=== PATIENT | female | born 1965 | race Caucasian/White ===

== ENCOUNTER 2023-04-20 15:26 | Emergency (ER) | payer BC, SELFPAY ==
[2023-04-20 15:36] VITALS: BP 142/83; PULSE 105; RESP 20; TEMP 36.4; O2SAT 96; BMI 38.6
--- NOTE | 2023-04-20 16:08 | CRLHL7_ITS ---
For Patients: As a result of the Cures Act, medical imaging exams and procedure reports are released immediately into your electronic medical record. You may view this report before your referring provider. If you have questions, please contact your health care provider. Indication: Fell yesterday. Technique: AP view of the pelvis Comparison: None. Findings: Bones: Alignment is normal. No fractures or bone lesions. Joint spaces: Mild bilateral degenerative changes in the hips and SI joints.. Soft tissues: Unremarkable. Impression: No acute fractures or dislocations identified. 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 Dictated by Serina Cuello MD @ 04/20/2023 4:48:08 PM (Electronically Signed)
--- NOTE | 2023-04-20 16:09 | ED_ITS ---
HPI - General Adult General Chief complaint: Extremity Pain/Injury, Lower Stated complaint: fell yesterday Time Seen by Provider: 04/20/23 15:45 History of Present Illness HPI narrative: This 57-year-old female comes in with an injury to her left lower back and buttock region. She states that she was adjusting her trailer stopped alongside the road and stepped backwards off of the trailer. She fell a couple feet and landed on her left buttock region. She states that she did bump her head but did not have loss of consciousness. This happened yesterday. She comes in today stating that she has episodes of pain in her left SI joint region and sometimes this radiates laterally and a bit down her leg. She is ambulatory. She states that the pain is recurrent now with rotational motions such as trying to open a door and pulling at with some rotation of her pelvis. Related Data Home Medications Medication Instructions Recorded Confirmed albuterol sulfate 90 mcg/actuation 1 inh inhalation PRN 04/20/23 04/20/23 aerosol inhaler (Ventolin HFA) Previous Rx's Medication Instructions Recorded cyclobenzaprine 10 mg tablet 10 mg PO TID #15 tabs 04/20/23 ketorolac 10 mg tablet 10 mg PO Q8H 5 days #15 tabs 04/20/23 methylprednisolone 4 mg tablets in See Rx Instructions PO .COMPLEX 04/20/23 a dose pack (Medrol (Clemente)) #21 ea Allergies Allergy/AdvReac Type Severity Reaction Status Date / Time Latex, Natural Rubber AdvReac Intermediate Rash Verified 04/20/23 15:36 narcotic Allergy Intermediate Uncoded 04/20/23 15:36 Review of Systems Status of ROS: Reports: 10 or more systems reviewed and unremarkable except as noted in History and below Narrative: Constitutional: No fevers, no weight gain or loss. Eyes: No discharge. No vision changes. HENT: No congestion, no sore throat, no ear pain. Cardiovascular: No chest pain, no palpitations. Respiratory: No shortness of breath, no wheezes, no cough. Gastrointestinal: No abdominal pain, no vomiting, no diarrhea. Genitourinary: No dysuria, no hematuria. Musculoskeletal: Normal range of motion. Pain in the left lower back and left buttock region. Skin: No rashes, no pruritis. Neurological: No dizziness, weakness, sensory change, speech change. Endo/Heme/Allergies: No bruising or bleeding. No polydipsia. Pysch: no suicidality, no anxiety, no insomnia. All other systems reviewed and are negative. Exam Narrative: Exam Narrative: Constitutional: Well-developed, well-nourished, no acute distress. HEENT: Normocephalic, atraumatic. Neck: Normal range of motion. Nontender. Supple. Heart: Regular. No murmurs. Normal rate. Intact distal pulses. Lungs: Clear to auscultation. No chest discomfort. No wheezes, rhonchi, or rales. Abdomen: Normal bowel sounds. Nontender. No rebound tenderness. Genitalia: Deferred. Back: No midline tenderness. Pain located below the belt left of midline in the left buttock region. No sign of bruising or deformity. The patient is ambulatory without much of a limp. Extremities: Normal range of motion. No injury. Skin: Intact. No rash. Warm. No erythema or pallor. Neurologic: No altered sensation. No weakness. Alert and oriented. Psychiatric: No suicidality. No anxiety or depression. No insomnia. Nursing notes and vitals signs are reviewed. Const: Vital Signs, click to edit/add: Vital Signs - 24 hr 04/20/23 15:36 Temperature 97.6 F Pulse Rate [Pulse Oximeter] 105 H Respiratory Rate 20 Blood Pressure [Le ft Upper Arm] 142/83 H Pulse Oximetry 96 Oxygen Delivery Me thod Room Air Course Vital Signs Vital signs: Initial Vital Signs Temperature 97.6 F 04/20/23 15:36 Temperature Source Temporal Artery Scan 04/20/23 15:36 Pulse Rate 105 H 04/20/23 15:36 Pulse Rhythm Regular 04/20/23 15:36 Respiratory Rate 20 04/20/23 15:36 Blood Pressure 142/83 H 04/20/23 15:36 Blood Pressure Mean 102 04/20/23 15:36 Pulse Oximetry 96 04/20/23 15:36 Oxygen Delivery Method Room Air 04/20/23 15:36 Vital Signs Temperature 97.6 F 04/20/23 15:36 Pulse Rate 105 H 04/20/23 15:36 Respiratory Rate 20 04/20/23 15:36 Blood Pressure 142/83 H 04/20/23 15:36 Pulse Oximetry 96 08/09/23 15:36 Oxygen Delivery Method Room Air 04/20/23 15:36 Temperature 97.6 F 04/20/23 15:36 Pulse Rate 105 H 04/20/23 15:36 Respiratory Rate 20 04/20/23 15:36 Blood Pressure 142/83 H 04/20/23 15:36 Pulse Oximetry 96 04/20/23 15:36 Oxygen Delivery Method Room Air 04/20/23 15:36 Medical Decision Making MDM Narrative Medical decision making narrative: This patient comes in reporting injuries from a fall that occurred yesterday. She is ambulatory without much of a limp but does come in requesting an x-ray of her pelvis. This was completed and shows no sign of acute findings by my review. Radiology report is pending. Patient is okay to be discharged home to increase activity as tolerated. I did provide prescriptions for Toradol, Flexeril, and Medrol Dosepak. Discharge Plan Discharge Clinical Impression: Contusion of hip, left Patient Disposition: Home, Self-Care Condition: Stable Additional Instructions: Increase activity as tolerated. Take medication as needed and directed. Follow up with MD return if worsening. Prescriptions: New cyclobenzaprine 10 mg tablet 10 mg PO TID Qty: 15 0RF ketorolac 10 mg tablet 10 mg PO Q8H 5 Days Qty: 15 0RF methylprednisolone [Medrol (Clemente)] 4 mg tablets,dose pack See Rx Instructions .ROUTE .COMPLEX Qty: 21 0RF Rx Instructions: orally per package directions No Action albuterol sulfate [Ventolin HFA] 90 mcg/actuation HFA aerosol inhaler 1 inh inhalation PRN Follow Up/Referrals: MELIZA FERGUSON DO [Primary Care Provider] - [facility]
--- NOTE | 2023-04-20 16:37 | ED.GENADULT ---
HPI - General Adult General Chief complaint: Extremity Pain/Injury, Lower Stated complaint: fell yesterday Time Seen by Provider: 04/20/23 15:45 Related Data Home Medications Medication Instructions Recorded Confirmed albuterol sulfate 90 mcg/actuation 1 inh inhalation PRN 04/20/23 04/20/23 aerosol inhaler (Ventolin HFA) Previous Rx's Medication Instructions Recorded cyclobenzaprine 10 mg tablet 10 mg PO TID #15 tabs 04/20/23 ketorolac 10 mg tablet 10 mg PO Q8H 5 days #15 tabs 04/20/23 methylprednisolone 4 mg tablets in See Rx Instructions PO .COMPLEX 04/20/23 a dose pack (Medrol (Clemente)) #21 ea Allergies Allergy/AdvReac Type Severity Reaction Status Date / Time Latex, Natural Rubber AdvReac Intermediate Rash Verified 04/20/23 15:36 narcotic Allergy Intermediate Uncoded 04/20/23 15:36 PFSH PFSH Social History Smoking Status: Never smoker Non-prescribed substance use: denies use Exam Const: Vital Signs, click to edit/add: Vital Signs - 24 hr 04/20/23 15:36 Temperature 97.6 F Pulse Rate [Pulse Oximeter] 105 H Respiratory Rate 20 Blood Pressure [Le ft Upper Arm] 142/83 H Pulse Oximetry 96 Oxygen Delivery Me thod Room Air Course Vital Signs Vital signs: Initial Vital Signs Temperature 97.6 F 04/20/23 15:36 Temperature Source Temporal Artery Scan 04/20/23 15:36 Pulse Rate 105 H 04/20/23 15:36 Pulse Rhythm Regular 04/20/23 15:36 Respiratory Rate 20 04/20/23 15:36 Blood Pressure 142/83 H 04/20/23 15:36 Blood Pressure Mean 102 04/20/23 15:36 Pulse Oximetry 96 04/20/23 15:36 Oxygen Delivery Method Room Air 04/20/23 15:36 Vital Signs Temperature 97.6 F 04/20/23 15:36 Pulse Rate 105 H 04/20/23 15:36 Respiratory Rate 20 04/20/23 15:36 Blood Pressure 142/83 H 04/20/23 15:36 Pulse Oximetry 96 04/20/23 15:36 Oxygen Delivery Method Room Air 04/20/23 15:36 Temperature 97.6 F 04/20/23 15:36 Pulse Rate 105 H 04/20/23 15:36 Respiratory Rate 20 04/20/23 15:36 Blood Pressure 142/83 H 04/20/23 15:36 Pulse Oximetry 96 04/20/23 15:36 Oxygen Delivery Method Room Air 04/20/23 15:36 Discharge Plan Discharge Clinical Impression: Contusion of hip, left Patient Disposition: Home, Self-Care Condition: Stable Additional Instructions: Increase activity as tolerated. Take medication as needed and directed. Follow up with MD return if worsening. Prescriptions: New cyclobenzaprine 10 mg tablet 10 mg PO TID Qty: 15 0RF ketorolac 10 mg tablet 10 mg PO Q8H 5 Days Qty: 15 0RF methylprednisolone [Medrol (Clemente)] 4 mg tablets,dose pack See Rx Instructions .ROUTE .COMPLEX Qty: 21 0RF Rx Instructions: orally per package directions No Action albuterol sulfate [Ventolin HFA] 90 mcg/actuation HFA aerosol inhaler 1 inh inhalation PRN Follow Up/Referrals: MELIZA FERGUSON DO [Primary Care Provider] - Stand [facility]one [facility]
== END 2023-04-20 16:50 | disposition home or self-care (01) ==
PROVIDERS: Emergency Provider Emergency Medicine Emergency Medical Services; PCP Student in an Organized Health Care Education/Training Program
DX: S70.02XA Contusion of left hip, initial encounter (principal); W17.89XA Other fall from one level to another, initial encounter
CPT/HCPCS: 72170; 99283; 99284

== ENCOUNTER 2023-07-12 10:39 | Outpatient (CLI) | payer MEDICAID, SELFPAY | END 2023-07-12 10:40 | disposition home or self-care (01) | LOC: INJ CL 10:40 | PROVIDERS: PCP Student in an Organized Health Care Education/Training Program; Visit Provider Family Medicine | DX: M17.12 Unilateral primary osteoarthritis, left knee (principal); M25.562 Pain in left knee | CPT/HCPCS: 64454 ==

== ENCOUNTER 2023-07-18 12:01 | Outpatient (CLI) | payer MEDICAID, SELFPAY ==
--- NOTE | 2023-07-18 13:27 | W.ANESCHARGE ---
Anesthesia Charges Start Date/Time Anesthesia Start Date: 07/18/23 Anesthesia Start Time: 13:05 Stop Date/Time Anesthesia Stop Date: 07/18/23 Anesthesia Stop Time: 13:25
== END 2023-07-18 12:02 | disposition home or self-care (01) ==
LOC: OP CLINIC 12:02
PROVIDERS: PCP Student in an Organized Health Care Education/Training Program; Visit Provider Internal Medicine Gastroenterology
DX: Z12.11 Encounter for screening for malignant neoplasm of colon (principal); K57.30 Diverticulosis of large intestine without perforation or abscess without bleeding
CPT/HCPCS: 45378; 812

== ENCOUNTER 2023-08-09 13:12 | Outpatient (CLI) | payer MEDICAID, SELFPAY ==
--- NOTE | 2023-08-09 12:28 | W.ANESCHARGE ---
Anesthesia Charges Start Date/Time Anesthesia Start Date: 08/09/23 Anesthesia Start Time: 14:01 Stop Date/Time Anesthesia Stop Date: 08/09/23 Anesthesia Stop Time: 14:37
--- NOTE | 2023-08-09 14:51 | W.ANESCHARGE ---
Anesthesia Charges Start Date/Time Anesthesia Start Date: 08/09/23 Anesthesia Start Time: 14:01 Stop Date/Time Anesthesia Stop Date: 08/09/23 Anesthesia Stop Time: 14:37
== END 2023-08-09 13:13 | disposition home or self-care (01) ==
LOC: INJ CL 13:12
PROVIDERS: PCP Student in an Organized Health Care Education/Training Program; Visit Provider Family Medicine
DX: M17.12 Unilateral primary osteoarthritis, left knee (principal); M25.562 Pain in left knee; G89.29 Other chronic pain
CPT/HCPCS: 01991; 64624; J1885; J2405; J2704

== ENCOUNTER 2023-09-20 07:29 | Outpatient (CLI) | payer MEDICAID, SELFPAY ==
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
== END 2023-09-20 07:30 | disposition home or self-care (01) ==
PROVIDERS: PCP Student in an Organized Health Care Education/Training Program; Visit Provider Family Medicine
DX: M54.16 Radiculopathy, lumbar region (principal); M51.36 Other intervertebral disc degeneration, lumbar region
CPT/HCPCS: 62323; J0702; Q9966

== ENCOUNTER 2023-09-27 08:34 | Outpatient (CLI) | payer MEDICAID, SELFPAY ==
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
== END 2023-09-27 08:35 | disposition home or self-care (01) ==
LOC: INJ CL 08:36
PROVIDERS: PCP Student in an Organized Health Care Education/Training Program; Visit Provider Family Medicine
DX: M17.31 Unilateral post-traumatic osteoarthritis, right knee (principal); M25.561 Pain in right knee
CPT/HCPCS: 64454

== ENCOUNTER 2023-10-18 12:01 | Outpatient (CLI) | payer MEDICAID, SELFPAY ==
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
--- NOTE | 2023-10-18 13:54 | W.ANESCHARGE ---
Anesthesia Charges Start Date/Time Anesthesia Start Date: 10/18/23 Anesthesia Start Time: 13:11 Stop Date/Time Anesthesia Stop Date: 10/18/23 Anesthesia Stop Time: 13:48
== END 2023-10-18 12:02 | disposition home or self-care (01) ==
LOC: INJ CL 12:03
PROVIDERS: PCP Student in an Organized Health Care Education/Training Program; Visit Provider Family Medicine
DX: M17.11 Unilateral primary osteoarthritis, right knee (principal); M25.561 Pain in right knee; G89.29 Other chronic pain
CPT/HCPCS: 01991; 64624; J1630; J1885; J2405; J2704

== ENCOUNTER 2024-09-21 13:35 | Emergency (ER) | payer MEDICAID, SELFPAY ==
--- OUTSIDE RECORDS SUMMARY | 2024-09-21 13:38 | XMS_ITS | Clinical Summary ---
Author Organization [facility] Address [place], [place] [address] Care Team Providers Care Gore Stitcher Name Role Phone Meliza Ryan DO Primary Care Provider [phone] Allergies Active Allergy Reactions Criticality Noted Date Comments Codeine Nausea And Vomiting 06/14/2023 Meperidine Anaphylaxis High 02/17/2023 Hydromorphone Anaphylaxis High 02/17/2023 Fentanyl *Unknown 07/03/2024 Hydrocodone GI Upset 08/30/2024 Meloxicam Other - Describe In Comment Field 07/14/2023 Palpitations Methylprednisolone Paresthesias 04/25/2023 Morphine Anaphylaxis High 02/17/2023 Phentermine Anaphylaxis High 05/28/2024 Medications acetaminophen (TYLENOL EXTRA STRGTH) 500 mg tablet Take 1 Tablet (500 mg) by mouth every 6 hours. Max acetaminophen dose: 4000mg in 24 hrs. 0 02/18/20 23 Active albuterol HFA (PRO-AIR; VENTOLIN; PROVENTIL) 90 mcg/actuation inhalerIndication s:SOB (shortness of breath) Inhale 1-2 Puffs by mouth every 4 hours if needed for Shortness Of Breath. 1 Each 2 04/11/20 23 Active omeprazole (PRILOSEC) 20 mg Delayed-Release capsuleIndication s:Chronic GERD Take 1 Capsule (20 mg) by mouth once daily before a meal. 90 Capsule 3 10/11/19 24 Active levalbuterol (Xopenex HFA) 45 mcg/actuation inhalerIndication s:Mild intermittent intrinsic asthma without status asthmaticus without complication Inhale 1-2 Puffs by mouth every 4 hours if needed for Shortness Of Breath. 15 g 04/23/20 24 Active cyclobenzaprine (FLEXERIL) 10 mg tabletIndications :Bulging of cervical intervertebral disc Take 1 Tablet (10 mg) by mouth 2 times daily if needed for Muscle Spasm. 60 Tablet 3 05/02/20 24 Active tirzepatide, weight loss, (Zepbound) 10 mg/0.5 mL penIndications:Ob esity (BMI 35.0-39.9 without comorbidity) Inject 10 mg subcutaneous once weekly. 6 mL 3 08/30/20 24 Active ibuprofen (IBU) 600 mg tabletIndications :Chronic arthralgias of knees and hips Take 1 Tablet (600 mg) by mouth three times daily with meals. Maximum of 3200 mg in 24 hours. 180 Tablet 5 08/30/20 24 Active tirzepatide, weight loss, (Zepbound) 7.5 mg/0.5 mL penIndications:Ob esity (BMI 35.0-39.9 without comorbidity) Inject 7.5 mg subcutaneous once weekly. 6 mL 05/31/20 24 024 Discontin ued(*Med complete/ Regimen complete/ Level of care change) IBU 600 mg tabletIndications :Chronic arthralgias of knees and hips Take 1 Tablet (600 mg) by mouth three times daily with meals. Maximum of 3200 mg in 24 hours. 180 Tablet 06/19/20 24 024 Discontin ued(Reord er (E-cancel not sent)) amoxicillin-clavu lanate (AUGMENTIN) 875-125 mg tabletIndications :Sinusitis, unspecified chronicity, unspecified location Take 1 Tablet by mouth two times daily with meals for 5 days. 10 Tablet 08/30/20 24 024 nitrofurantoin macrocrystals/mon ohydrate (Macrobid) 100 mg capsuleIndication s:Urinary tract infection without hematuria, site unspecified Take 1 Capsule (100 mg) by mouth two times daily for 5 days. 10 Capsule 08/30/20 24 024 fluconazole (DIFLUCAN) 150 mg tabletIndications :Urinary tract infection without hematuria, site unspecified Take 1 Tablet (150 mg) by mouth one time for 1 dose. 1 Tablet 12/19/20 24 024 Active Problems Problem Noted Date Diagnosed Date Obesity (BMI 35.0-39.9 without comorbidity) 02/11 History of total hysterectomy 04/11/2023 Overview (04/11/2023): 1 ovary left Cataracts, bilateral 02/17/2023 Encounters Date Type Department Care Team Description 09/18/2024 Telephone [facility] [address] [place] [address] Estephania Enamorado MD Procedure 09/04/2024 [facility] [address] [facility] [address] [place] [address] Debra Torres MD Screening (Injection Prescreening-Lumbar RFA) 08/30/2024 7:40 AM STUD MASTER/MISTRESS Office Visit [facility] [address] [place] [address] Meliza Ryan DO Medication Management (Renew Zepbound, maybe increase ) 08/30/2024 Telephone [facility] [address] [place] [address] [address] [place] [address] Nehemias Lainez DO Pain (Pain diary post Lumbar MBB #2.) 08/30/2024 Travel 08/24/2024 Orders Only [address] [place] [id number] Nehemias Lainez DO <No scans attached> 07/31/2024 8:00 AM STUD MASTER/MISTRESS Ancillary Procedure [facility] [address] [place] [address] 07/31/2024 Telephone [facility] [address] [facility] [address] [place] [address] Nehemias Lainez DO Pain (Pain post MBB#1) 07/31/2024 Travel 07/30/[address] [place] [address] Shine Mack MD Results (ekg ) 07/26/2024 [facility] [address] [facility] [address] [place] [address] Nehemias Lainez DO Screening (Injection prescreening) 07/25/2024 11:30 AM STUD MASTER/MISTRESS Office [facility] [address] [facility] [address] [place] [address] Shine Mack MD Consult (REFERRED BY DR. MELIZA RYAN - HOLTER 04/09 - NO OUTSIDE CARDS - DX: Paroxysmal SVT (supraventricular tachycardia) (HC) [I47.10]/LABS 06/11 /) 07/25/2024 Travel 07/23/2024 Telephone [facility] [address] [facility] [address] [place] [address] Nehemias Lainez DO Pain (Pain diary post MBB.) 07/20/2024 Orders Only [facility] [address] [facility] [address] [place] [id number] Nehemias Lainez DO <No scans attached> 07/20/2024 Travel 07/03/2024 3:00 PM CDT Office Visit [facility] [address] [facility] [address] [place] [address] Estephania Enamorado MD Consult (Initial office visit. 06/25 imaging. Pt reports left leg pain. ) 07/03/2024 Travel 06/29/2024 Travel 06/25/2024 11:00 AM CDT Orders Only [facility] [address] [place] [address] 2 scans: (2-Ord) US VENOUS INSUFFICIENCY LOWER EXTREMITY BILATERAL ([id number]) 06/25/2024 Travel from Last 3 Months Immunizations Name Administration Dates Next Due Tdap 04/11/2023 Family History Medical History Relation Name Comments Cancer-breast No Family History Social History Tobacco Use Types Packs/Day Years Used Date Smoking Tobacco: Never Passive Smoke Exposure: Never Smokeless Tobacco: Never Tobacco Cessation:Counseling Given: Yes Alcohol Use Standard Drinks/Week Comments Yes 0 (1 standard drink = 0.6 oz pur e alcohol) [facility] Utilities Answer Date Recorded Do you have trouble paying f or utilities (for example, heat, electricity, water, phone)? Yes 03/09/2024 PHQ-2 Answer Date Recorded PHQ-2 TOTAL SCORE 0 04/11/2023 Social Connections Answer Date Recorded Do you often feel lonely or isolated from those around you? 0 03/09/2024 Financial Resource Strain Answer Date R ecorded Difficulty of Paying Living Expenses 3 03/09/2024 Difficulty of Paying Living Expenses Not on file 03/09/2024 Food Insecurity Answer Date Recorded Do you worry your food will run out before you are able to buy more? 1 03/09/2024 Transportation Needs Answer Date Record ed Does lack of transportation keep you from medica l appointments? 1 03/09/2024 Does lack of transportation keep you from work, meetings or getting things that you need? 1 03/09/2024 Housing Stability Answer Date Recorded What is your housing situation today? 1 03/09/2024 Comments No Sex and Gender Information Value Date Recorded Sex Assigned at Not on file Legal Sex Female 2:18 PM CDT Gender Identity Not on file Sexual Orientation Not on file Obstetrics History Last Filed Vital Signs Vital Sign Reading Time Taken Comments Blood Pressure 113/75 08/30/2024 7:50 AM STUD MASTER/MISTRESS Pulse 91 08/30/2024 7:50 AM STUD MASTER/MISTRESS Temperature 36.7 C (98.1 F) 06/04/2024 10:15 AM CDT Respiratory Rate 16 08/25/2023 2:36 PM STUD MASTER/MISTRESS Oxygen Saturation 98% 08/30/2024 7:50 AM STUD MASTER/MISTRESS Inhaled Oxygen Concentration - - Weight 88.8 kg (195 lb 12.8 oz) 08/30/2024 7:50 AM STUD MASTER/MISTRESS Height 165.1 cm (5' 5) 07/25/2024 11:4 5 AM STUD MASTER/MISTRESS Body Mass Index 32.58 07/25/2024 11:45 AM STUD MASTER/MISTRESS Plan of Treatment Upcoming Encounters Date Type Department Care Team (Late st Contact Info) Description 09/24/2024 7:15 AM STUD MASTER/MISTRESS Office Visit [facility] [address] [place] [address] Meliza Ryan DO [address] [place] [address] 09/27/2024 7:30 AM STUD MASTER/MISTRESS Appointment [facility] [address] [place] [address] 10/25/2024 2:20 PM STUD MASTER/MISTRESS Office Visit [facility] [address] [place] [address] Roman Pulliam MD [address] [place] [address] Health Maintenance Due Date Last Done Comments HIV for age 15-65 12/19/1982 Hepatitis C screening for ag e 18-79 12/19/1985 Pneumococcal series for age 50+ (1 of 2 - PCV) 12/19/1986 Zoster (shingles) series for age 50+ (1 of 2) 12/19/2017 Depression screening for age 12+ 04/13/2024 04/13/2023, 04/11/2023, 04/11/2023, Additional history exists COVID-19 vaccine series ( - season) 2024 05/30/2021 Influenza for age 50-64 05/13/2024 Mammogram for age 45-75 04/16/2025 04/16/2024, 04/11 BMI (ht and wt on same day) for age 18+ 07/25/2025 07/25/2024, 07/03/2024, 06/11/2024, Additional history exists Lipids for age 45-75 06/11/2029 06/11/2024, 02/18/20 23 Tetanus booster 04/11/2033 04/11/2023 Colonoscopy through age 75 07/18/2033 07/18/2023, Tdap Completed 04/11/2023 Procedures Procedure Name Priority Date/Time Associated Diagnosis Comments URINALYSIS MACROSCOPIC - [facility] ONLY POC DIP ([facility]) Routine 08/30/2024 8:42 AM STUD MASTER/MISTRESS Urinary tract infection without hematuria, site unspecified VITAMIN B12 Routine 08/30/2024 8:41 AM STUD MASTER/MISTRESS Low vitamin B12 level IRON PLUS IRON BINDING CAP Routine 08/30/2024 8:41 AM STUD MASTER/MISTRESS Iron deficiency anemia, unspecified iron deficiency anemia type CBC WITH AUTO DIFFERENTIAL Routine 08/30/2024 8:41 AM STUD MASTER/MISTRESS Low vitamin B12 level Iron deficiency anemia, unspecified iron deficiency anemia type CREATININE Routine 08/30/2024 8:41 AM STUD MASTER/MISTRESS Chronic arthralgias of knees and hips URINALYSIS MICROSCOPIC Routine 08/30/2024 8:38 AM STUD MASTER/MISTRESS Urinary tract infection without hematuria, site unspecified ECHO TTE COMPLETE WO CONTRAST Routine 07/31/2024 8:44 AM STUD MASTER/MISTRESS Heart palpitations EKG 12 LEAD Routine 07/25/2024 12:54 PM STUD MASTER/MISTRESS Screening for cardiovascular condition US VENOUS INSUFFICIENCY LOWER EXTREMITY BILATERAL Routine 06/25/2024 12:36 PM CDT Varicose veins of both lower extremities with pain LIPID PANEL W REFLEX MEASURED LDL Routine 06/11/2024 8:32 AM CDT Lipid screening XR MAMMO [place] BILAT SCREEN Routine 04/16/2024 7:12 AM CDT Visit for screening mammogram COLONOSCOPY SCREENING Routine 07/18/2023 12:00 AM STUD MASTER/MISTRESS Encounter for screening colonoscopy Diverticulosis of large intestine without hemorrhage from Last 3 Months or Most Recently Relevant to Health Maintenance Results * (ABNORMAL) POCT Urinalysis Dipstick Only (08/30/2024 8:42 AM STUD MASTER/MISTRESS) PH 5.5 5.0 - 8.0 [facility] SPECIFIC GRAVITY 1.015 1.001 - 1.035 [facility] GLUCOSE NEGATIVE NEGATIVE [facility] BILIRUBIN NEGATIVE NEGATIVE [facility] KETONES NEGATIVE NEGATIVE [facility] OCCULT BLOOD NEGATIVE NEGATIVE [facility] PROTEIN NEGATIVE NEGATIVE [facility] NITRITE NEGATIVE NEGATIVE [facility] LEUKOCYTE ESTERASE TRACE(A) NEGATIVE [facility] Urine URINE SPECIMEN / Unknown 08/30/2024 8:42 AM STUD MASTER/MISTRESS 08/30/2024 8:42 AM STUD MASTER/MISTRESS [facility] URINE Final Result [facility] [address] [place] [address], [place] [phone] [facility] [address] [place] [address] * IRON PLUS IRON BINDING CAP (08/30/2024 8:41 AM STUD MASTER/MISTRESS) IRON, TOTAL 60 45 - 160 mcg/dL [facility] IRON BINDING CAPACITY 371 250 - 450 mcg/dL (calc) [facility] % SATURATION 16 16 - 45 % (calc) [facility] Blood BLOOD SPECIMEN / Unknown 08/30/2024 8:41 AM STUD MASTER/MISTRESS 08/30/2024 8:41 AM STUD MASTER/MISTRESS us Flakitai Darioqra DO CHEMISTRY Final Result [facility] [address] [place] [address], [place] [phone] [facility] [address] [place] [address] * CREATININE (08/30/2024 8:41 AM STUD MASTER/MISTRESS) CREATININE 0.75 0.50 - 1.03 mg/dL [facility] EGFR 93 > OR = 60 mL/min/1.73 m2 [facility] Blood BLOOD SPECIMEN / Unknown 08/30/2024 8:41 AM STUD MASTER/MISTRESS 08/30/2024 8:41 AM STUD MASTER/MISTRESS Meliza Dariosergio HUANG CHEMISTRY Final Result [facility] [address] [place] [address], [facility] [address] [place] [address] * (ABNORMAL) CBC AND DIFFERENTIAL (08/30/2024 8:41 AM STUD MASTER/MISTRESS) WHITE BLOOD CELL COUNT 6.9 3.8 - 10.8 Thousand/u L [facility] RED BLOOD CELL COUNT 5.34(H) 3.80 - 5.10 Million/uL [facility] HEMOGLOBIN 15.3 11.7 - 15.5 g/dL [facility] HEMATOCRIT 48.2(H) 35.0 - 45.0 % [facility] MCV 90.3 80.0 - 100.0 fL [facility] MCH 28.7 27.0 - 33.0 pg [facility] MCHC 31.7(L) 32.0 - 36.0 g/dL [facility] Comment: For adults, a slight decrease in the calculated MCHC value (in the range of 30 to 32 g/dL) is most likely not clinically significant; however, it should be interpreted with caution in correlation with other red cell parameters and the patient's clinical condition. RDW 14.4 11.0 - 15.0 % [facility] PLATELET COUNT 323 140 - 400 Thousand/u L [facility] MPV 10.3 7.5 - 12.5 fL [facility] ABSOLUTE NEUTROPHILS 4,568 1,500 - 7,800 cells/uL [facility] ABSOLUTE LYMPHOCYTES 1,773 850 - 3,900 cells/uL [facility] ABSOLUTE MONOCYTES 352 200 - 950 cells/uL [facility] ABSOLUTE EOSINOPHILS 179 15 - 500 cells/uL [facility] ABSOLUTE BASOPHILS 28 0 - 200 cells/uL [facility] NEUTROPHILS 66.2 % [facility] LYMPHOCYTES 25.7 % [facility] MONOCYTES 5.1 % [facility] EOSINOPHILS 2.6 % [facility] BASOPHILS 0.4 % [facility] Blood BLOOD SPECIMEN / Unknown 08/30/2024 8:41 AM STUD MASTER/MISTRESS 08/30/2024 8:41 AM STUD MASTER/MISTRESS [facility] HEMATOLOGY Final Result [facility] [address] [place] [address], [place] [phone] [facility] [address] [place] [address] * VITAMIN B12 (08/30/2024 8:41 AM STUD MASTER/MISTRESS) Pathologist [facility] VITAMIN B12 465 200 - 1,100 pg/mL [facility] Blood BLOOD SPECIMEN / Unknown 08/30/2024 8:41 AM STUD MASTER/MISTRESS 08/30/2024 8:41 AM STUD MASTER/MISTRESS Meliza Ryan DO CHEMISTRY Final Result [facility] [address] [place] [address], [place] [phone] [facility] [address] [place] [address] * URINALYSIS MICROSCOPIC (08/30/2024 8:38 AM STUD MASTER/MISTRESS) Pathologist [facility] RBC 0-2 0-2, None Seen /HPF 08/30/2024 3:58 PM STUD MASTER/MISTRESS [facility] WBC 3-5 0-2, 3-5, None Seen /HPF 08/30/2024 3:58 PM STUD MASTER/MISTRESS [facility] BACTERIA Rare None Seen, Rare, Few Bacteria/ HPF 08/30/2024 3:58 PM STUD MASTER/MISTRESS [facility] EPITHELIAL CELLS None Seen None Seen, Few Epi/HPF 08/30/2024 3:58 PM STUD MASTER/MISTRESS [facility] HYALINE CASTS 0-2 0-2, 3-5 /LPF 08/30/2024 3:58 PM STUD MASTER/MISTRESS [facility] Urine URINE SPECIMEN / Unknown Non-Blood / Unknown 08/30/2024 8:38 AM STUD MASTER/MISTRESS 08/30/2024 8:38 AM STUD MASTER/MISTRESS us Meliza Ryan DO URINE Final Result [facility] [address] [place] [address], [place] * ECHO TTE COMPLETE WO CONTRAST (07/31/2024 8:44 AM STUD MASTER/MISTRESS) AORTIC VALVE MEAN PG 5 mmHg EJECTION FRACTION 59 % PEAK TR VELOCITY 2.3 m/s LVEDD 4.6 cm EJECTION FRACTION 55 - 60% Anatomical Region Laterality Modality Ultrasound 07/31/2024 8:11 AM STUD MASTER/MISTRESS Narrative 07/31/2024 9:18 AM STUD MASTER/MISTRESS ECHOCARDIOGRAM JETHRO CERDA : 1965 58 years Study Date: 07/31/2024 8:11:12 AM Gender: F BP: 99/59 mmHg Height: 165.00 cm BSA: 2.01 m Weight: 94.00 kg Tech: MB Referring MD: SHINE MACK Site: [facility] Reading Location: Mobile OP Patient Location: Outpatient. Procedure: 2D, Color Doppler and Spectral Doppler. Indication for study: Palpitations Cardiac Rhythm: Regular.Study quality: Fair. Final Impressions: 1. Normal LV size, mildly increased wall thickness, normal global systolic function with an estimated EF of 55 - 60%. 2. The mitral valve is normal, mild mitral regurgitation. Comparison There are no prior studies on this patient for comparison purposes. Chamber Sizes and Function Normal left ventricular size, mildly increased wall thickness, normal global systolic function with an estimated EF of 55 - 60%. No resting regional wall motion abnormality visualized. Left atrial size is normal. Left atrial pressure is normal. Right ventricular cavity size is normal, global systolic RV function is normal. RV wall thickness is normal. The right atrium is normal. Right atrial volume index is 27 ml/m . Right atrial area is 16 cm . The pulmonary artery is of normal size and origin. The sinus of Valsalva is normal sized. The ascending aorta is normal sized. Valves, RV Pressures and Diastolic Function The aortic valve is normal in structure and trileaflet, no stenosis and no regurgitation. The mitral valve is normal in structure, mild mitral regurgitation. Normal diastolic function. The tricuspid valve is normal in structure. Tricuspid regurgitation is mild regurgitation. The tricuspid regurgitant velocity is 2.3 m/s, the estimated right ventricular systolic pressure is 21 mmHg plus right atrial pressure. The pulmonic valve is not well visualized. Unable to determine pulmonary regurgitation. Masses, Effusion, Shunts There is no pericardial effusion. The inferior vena cava is small sized, respiratory size variation greater than 50%. No left to right shunting was detected by limited color flow Doppler interrogation of the interatrial septum. MEASUREMENTS AND CALCULATIONS 2-D Measurements and LV Function: LVID (d) 4.6 cm LV FS% (2D) 44 % LVID (s) 2.6 cm LVOT diameter 2.0 cm IVS (d) 1.2 cm HR 70 bpm LVPW (d) 1.0 cm LA Vol index 31 ml/m2 Ao Sinus 3.2 cm RA Vol index 27 ml/m2 Asc Ao 3.3 cm RA area 16 cm RV Max 4C (d) 3.8 cm Diastology: Mitral Tissue Doppler E Peak 0.5 m/s e', Septum 0.08 m/s A Peak 0.5 m/s e', Lateral 0.13 m/s E/A 1.0 E/e' Average 5.14 DT 216 msec Aortic Valve: Vmax 1.4 m/s RANGEL (V) 2.47 cm VTI 0.30 m RANGEL (I) 2.31 cm LVOT V max 1.2 m/s Max PG 8 mmHg LVOT VTI 0.23 m Mean PG 5 mmHg SV 70 ml Dim Index 0.76 SV index 35 ml/m CO 4.9 l/min CI 2.5 l/min/m Mitral Valve: MVA 3.5 cm MV P 1/2 63 msec Tricuspid Valve and estimated PA pressures: TR Vmax 2.3 m/s TAPSE 1.8 cm TR maxG 21 mmHg . This study was interpreted by an [facility] accredited facility. Final Procedure Note Darryl Agudelo MD - 07/31/2024 ECHOCARDIOGRAM JETHRO CERDA : 1965 58 years Study Date: 07/31/2024 8:11:12 AM Gender: F BP: 99/59 mmHg Height: 165.00 cm BSA: 2.01 m Weight: 94.00 kg Tech: [facility] Ref[facility] Site: [facility] [place] Location: [place] [facility] Patient Location: Outpatient. Procedure: 2D, Color Doppler and Spectral Doppler. Indication for study: Palpitations Cardiac Rhythm: Regular.Study quality: Fair. Final Impressions: 1. Normal LV size, mildly increased wall thickness, normal globalsystolic function with an estimated EF of 55 - 60%. 2. The mitral valve is normal, mild mitral regurgitation. Comparison There are no prior studies on this patient for comparison purposes. Chamber Sizes and Function Normal left ventricular size, mildly increased wall thickness, normalglobal systolic function with an estimated EF of 55 - 60%. No restingregional wall motion abnormality visualized. Left atrial size is normal.Left atrial pressure is normal. Right ventricular cavity size is normal,global systolic RV function is normal. RV wall thickness is normal. Theright atrium is normal. Right atrial volume index is 27 ml/m . Rightatrial area is 16 cm . The pulmonary artery is of normal size and origin.The sinus of Valsalva is normal sized. The ascending aorta is normalsized. Valves, RV Pressures and Diastolic Function The aortic valve is normal in structure and trileaflet, no stenosis and noregurgitation. The mitral valve is normal in structure, mild mitralregurgitation. Normal diastolic function. The tricuspid valve is normal instructure. Tricuspid regurgitation is mild regurgitation. The tricuspidregurgitant velocity is 2.3 m/s, the estimated right ventricular systolicpressure is 21 mmHg plus right atrial pressure. The pulmonic valve is notwell visualized. Unable to determine pulmonary regurgitation. Masses, Effusion, Shunts There is no pericardial effusion. The inferior vena cava is small sized,respiratory size variation greater than 50%. No left to right shunting wasdetected by limited color flow Doppler interrogation of the interatrialseptum. MEASUREMENTS AND CALCULATIONS 2-D Measurements and LV Function: LVID (d) 4.6 cm LV FS% (2D) 44 % LVID (s) 2.6 cm LVOT diameter 2.0 cm IVS (d) 1.2 cm HR 70 bpm LVPW (d) 1.0 cm LA Vol index 31 ml/m2 Ao Sinus 3.2 cm RA Vol index 27 ml/m2 Asc Ao 3.3 cm RA area 16 cm RV Max 4C (d) 3.8 cm Diastology: Mitral Tissue Doppler E Peak 0.5 m/s e', Septum 0.08 m/s A Peak 0.5 m/s e', Lateral 0.13 m/s E/A 1.0 E/e' Average 5.14 DT 216 msec Aortic Valve: Vmax 1.4 m/s RANGEL (V) 2.47 cm VTI 0.30 m RANGEL (I) 2.31 cm LVOT V max 1.2 m/s Max PG 8 mmHg LVOT VTI 0.23 m Mean PG 5 mmHg SV 70 ml Dim Index 0.76 SV index 35 ml/m CO 4.9 l/min CI 2.5 l/min/m Mitral Valve: MVA 3.5 cm MV P 1/2 63 msec Tricuspid Valve and estimated PA pressures: TR Vmax 2.3 m/s TAPSE 1.8 cm TR maxG 21 mmHg . This study was interpreted by an [facility] accredited facility. Final us Shine Mack MD ECHO ORD Final Re sult * EKG 12 LEAD (07/25/2024 12:54 PM STUD MASTER/MISTRESS) Interpretation Normal sinus rhythm Low voltage QRS Cannot rule out Anterior infarct , age undetermined Abnormal ECG No previous ECGs available Ventricular Rate 80 BPM Atrial Rate 80 BPM P-R Interval 138 ms QRS Duration 76 ms QT 374 ms QTc 431 ms P [place] 44 degrees R [place] 4 degrees T [place] 62 degrees 07/25/2024 12:5 4 PM STUD MASTER/MISTRESS 07/27/2024 3:22 PM STUD MASTER/MISTRESS us Shine Mack MD EKG ORD Final Re sult * US VENOUS INSUFFICIENCY LOWER EXTREMITY BILATERAL (06/25/2024 12:36 PM CDT) Anatomical Region Laterality Modality LEGS Ultrasound 06/25/2024 10:5 0 AM CDT Narrative 06/25/2024 6:29 PM CDT VASCULAR ULTRASOUND REPORT JETHRO CERDA : 1965 Study Date: 06/25/2024 10:50:33 AM Age: 58 years Tech: PMK Gender: F Referring MD: MELIZA RYAN Site: [facility] Study performed: Duplex US venous insufficiency, (bilateral). Indication for study: varicose veins Study Quality: Adequate TECHNIQUE: Lower/upper extremity veins were examined with duplex ultrasound, color-flow and spectral Doppler per exam protocol. Vein compressibility by transducer pressure was used to evaluate presence/absence of DVT/SVT. Venous flow and competence was evaluated by flow augmentation maneuvers per exam protocol. Insufficiency studies were performed with the patient in upright position, with vein diameters measured in mm, and reflux. IMPRESSION: 1. No evidence of deep vein thrombosis in the right and left lower extremity. 2. Deep vein insufficiency noted in the right common femoral vein. 3. No evidence of deep venous insufficiency in the left lower extremity. 4. Superficial venous insufficiency was noted in the right greater saphenous vein at upper calf. 5. The right greater saphenous vein and small saphenous vein are patent and compressible. 6. Superficial venous insufficiency was noted in the left sapheno-femoral junction and greater saphenous vein at proximal thigh, mid thigh, distal thigh and knee. 7. Incompetent varicose and/or checker stocker veins as listed below. 8. The left greater saphenous vein and small saphenous vein are patent and compressible. COMPARISON: No prior study available for comparison. FINDINGS: Right Lower Extremity: No evidence of DVT. Left Lower Extremity: No deep venous insufficiency. No evidence of DVT. Varicose vein at post calf, 2.5 mm diameter, 1.9 sec reflux. MEASUREMENTS: + +--------+----+--------+------+ RIGHT Compress SVT Diameter Reflux (mm) (secs) + +--------+----+--------+------+ SFJ yes None 6.7 0.0 + +--------+----+--------+------+ GSV THIGH PRX yes None 3.1 0.0 + +--------+----+--------+------+ GSV THIGH MID yes None 3.1 0.0 + +--------+----+--------+------+ GSV THIGH DST yes None 3.9 0.0 + +--------+----+--------+------+ GSV KNEE yes None 2.2 0.0 + +--------+----+--------+------+ GSV CALF UPPER yes None 2.3 6.5 + +--------+----+--------+------+ GSV CALF MID yes None 2.3 0.0 + +--------+----+--------+------+ GSV CALF LOW yes None 2.5 0.0 + +--------+----+--------+------+ SSV KNEE/SPJ yes None 2.4 0.0 + +--------+----+--------+------+ SSV CALF PRX yes None 1.5 0.0 + +--------+----+--------+------+ SSV CALF MID yes None 2.4 0.0 + +--------+----+--------+------+ SSV CALF DST yes None 2.2 0.0 + +--------+----+--------+------+ AASV THIGH PRX yes None 2.8 0.0 + +--------+----+--------+------+ + +--------+----+ +------+ LEFT Compress SVT Diameter (mm) Reflux (secs) + +--------+----+ +------+ SFJ yes None 8.2 3.3 + +--------+----+ +------+ GSV THIGH PRX yes None 5.0 1.3 + +--------+----+ +------+ GSV THIGH MID yes None 5.3 2.3 + +--------+----+ +------+ GSV THIGH DST yes None 4.1 4.7 + +--------+----+ +------+ GSV KNEE yes None 4.3 2.6 + +--------+----+ +------+ GSV CALF UPPER yes None 2.0 0.0 + +--------+----+ +------+ GSV CALF MID yes None 1.3 0.0 + +--------+----+ +------+ GSV CALF LOW yes None 2.0 0.0 + +--------+----+ +------+ SSV KNEE/SPJ yes None 3.2 0.0 + +--------+----+ +------+ SSV CALF PRX yes None 3.1 0.0 + +--------+----+ +------+ SSV CALF MID yes None 1.6 0.0 + +--------+----+ +------+ SSV CALF DST yes None 2.0 0.0 + +--------+----+ +------+ AASV THIGH PRX yes None 1.3 0.0 + +--------+----+ +------+ can't evaluate Varicose Veins + + + + LEFT Location Diameter (mm) Reflux (secs) + + + + post calf 2.5 1.9 + + + + DEEP SYSTEM +----+--------+-----+ +--------+----+ RIGHT RIGHT RIGHT LEFT LEFT Compress DVT Reflux (secs) Compress DVT +----+--------+-----+ +--------+----+ CFV yes None 1.0 yes None +----+--------+-----+ +--------+----+ PFV yes None yes None +----+--------+-----+ +--------+----+ FV yes None yes None +----+--------+-----+ +--------+----+ POPV yes None 0.7 yes None +----+--------+-----+ +--------+----+ can't evaluate Broderick Miller MD. Electronically signed on 06/25/2024 6:29:48 PM This study was performed and interpreted by a service accredited by the Intersocietal Accreditation Commission (IAC/Vascular), www.[email or web address].org/vascular Report generated by [employer]. Final Procedure Note Broderick Miller MD - 06/25/2024 VASCULAR ULTRASOUND REPORT JETHRO CERDA : 1965 Study Date: 06/25/2024 10:50:33 AM Age: 58 years Tech: PMK Gender: F Referring MD: MELIZA RYAN Site: [facility] Study performed: Duplex US venous insufficiency, (bilateral). Indication for study: varicose veins Study Quality: Adequate TECHNIQUE: Lower/upper extremity veins were examined with duplex ultrasound,color-flow and spectral Doppler per exam protocol. Vein compressibility bytransducer pressure was used to evaluate presence/absence of DVT/SVT.Venous flow and competence was evaluated by flow augmentation maneuversper exam protocol. Insufficiency studies were performed with the patientin upright position, with vein diameters measured in mm, and reflux. IMPRESSION: 1. No evidence of deep vein thrombosis in the right and left lowerextremity. 2. Deep vein insufficiency noted in the right common femoral vein. 3. No evidence of deep venous insufficiency in the left lowerextremity. 4. Superficial venous insufficiency was noted in the right greatersaphenous vein at upper calf. 5. The right greater saphenous vein and small saphenous vein are patentand compressible. 6. Superficial venous insufficiency was noted in the left sapheno- femoraljunction and greater saphenous vein at proximal thigh, mid thigh, distalthigh and knee. 7. Incompetent varicose and/or checker stocker veins as listed below. 8. The left greater saphenous vein and small saphenous vein are patentand compressible. COMPARISON: No prior study available for comparison. FINDINGS: Right Lower Extremity: No evidence of DVT. Left Lower Extremity: No deep venous insufficiency. No evidence of DVT. Varicose vein at postcalf, 2.5 mm diameter, 1.9 sec reflux. MEASUREMENTS: + +--------+----+--------+------+ RIGHT Compress SVT Diameter Reflux (mm) (secs) + +--------+----+--------+------+ SFJ yes None 6.7 0.0 + +--------+----+--------+------+ GSV THIGH PRX yes None 3.1 0.0 + +--------+----+--------+------+ GSV THIGH MID yes None 3.1 0.0 + +--------+----+--------+------+ GSV THIGH DST yes None 3.9 0.0 + +--------+----+--------+------+ GSV KNEE yes None 2.2 0.0 + +--------+----+--------+------+ GSV CALF UPPER yes None 2.3 6.5 + +--------+----+--------+------+ GSV CALF MID yes None 2.3 0.0 + +--------+----+--------+------+ GSV CALF LOW yes None 2.5 0.0 + +--------+----+--------+------+ SSV KNEE/SPJ yes None 2.4 0.0 + +--------+----+--------+------+ SSV CALF PRX yes None 1.5 0.0 + +--------+----+--------+------+ SSV CALF MID yes None 2.4 0.0 + +--------+----+--------+------+ SSV CALF DST yes None 2.2 0.0 + +--------+----+--------+------+ AASV THIGH PRX yes None 2.8 0.0 + +--------+----+--------+------+ + +--------+----+ +------+ LEFT Compress SVT Diameter (mm) Reflux (secs) + +--------+----+ +------+ SFJ yes None 8.2 3.3 + +--------+----+ +------+ GSV THIGH PRX yes None 5.0 1.3 + +--------+----+ +------+ GSV THIGH MID yes None 5.3 2.3 + +--------+----+ +------+ GSV THIGH DST yes None 4.1 4.7 + +--------+----+ +------+ GSV KNEE yes None 4.3 2.6 + +--------+----+ +------+ GSV CALF UPPER yes None 2.0 0.0 + +--------+----+ +------+ GSV CALF MID yes None 1.3 0.0 + +--------+----+ +------+ GSV CALF LOW yes None 2.0 0.0 + +--------+----+ +------+ SSV KNEE/SPJ yes None 3.2 0.0 + +--------+----+ +------+ SSV CALF PRX yes None 3.1 0.0 + +--------+----+ +------+ SSV CALF MID yes None 1.6 0.0 + +--------+----+ +------+ SSV CALF DST yes None 2.0 0.0 + +--------+----+ +------+ AASV THIGH PRX yes None 1.3 0.0 + +--------+----+ +------+ can't evaluate Varicose Veins + + + + LEFT Location Diameter (mm) Reflux (secs) + + + + post calf 2.5 1.9 + + + + DEEP SYSTEM +----+--------+-----+ +--------+----+ RIGHT RIGHT RIGHT LEFT LEFT Compress DVT Reflux (secs) Compress DVT +----+--------+-----+ +--------+----+ CFV yes None 1.0 yes None +----+--------+-----+ +--------+----+ PFV yes None yes None +----+--------+-----+ +--------+----+ FV yes None yes None +----+--------+-----+ +--------+----+ POPV yes None 0.7 yes None +----+--------+-----+ +--------+----+ can't evaluate Broderick Miller MD. Electronically signed on 06/25/2024 6:29:48 PM This study was performed and interpreted by a service accredited by theIntersocietal Accreditation Commission (IAC/Vascular),www.[email or web address].[email or web address]/vascular Report generated by [employer]. Final us Meliza Ryan DO US Final Result * (ABNORMAL) LIPID PANEL W REFLEX MEASURED LDL (06/11/2024 8:32 AM CDT) [facility] CHOLESTEROL, TOTAL 134 <200 mg/dL [facility] HDL CHOLESTEROL 34(L) > OR = 50 mg/dL [facility] TRIGLYCERIDES 158(H) <150 mg/dL [facility] LDL-CHOLESTEROL 75 mg/dL (calc) [facility] Comment: Reference range: <100 Desirable range <100 mg/dL for primary prevention; <70 mg/dL for patients with CHD or diabetic patients with > or = 2 CHD risk factors. LDL-C is now calculated using the Lucien-Quan calculation, which is a validated novel method providing better accuracy than the Friedewald equation in the estimation of LDL-C. Lucien SS et al. MIRELLA. 2013;310(19): 3953-2749 (http://education.Extreme Reach/faq/WGP282) CHOL/HDLC RATIO 3.9 <5.0 (calc) [facility] NON HDL CHOLESTEROL 100 <130 mg/dL (calc) [facility] Comment: For patients with diabetes plus 1 major ASCVD risk factor, treating to a non-HDL-C goal of <100 mg/dL (LDL-C of <70 mg/dL) is considered a therapeutic option. Blood BLOOD SPECIMEN / Unknown 06/11/2024 8:32 AM CDT 06/11/2024 8:33 AM CDT us Adei Darioqra DO CHEMISTRY Final Result [employer] [facility] [address] [place] [address], [facility] [address] [place] [address] * XR MAMMO LAYTON BILAT SCREEN (04/16/2024 7:12 AM CDT) Anatomical Region Laterality Modality BREASTS, Breast Left, Breast Right Bilateral Mammography Impressions 04/16/2024 1:34 PM CDT There is no radiographic evidence for malignancy. Recommend annual mammograms. MAMMOGRAM ASSESSMENT: ACR 1 Negative PATIENTS: You will also receive a letter with your examination results in an easy to read format. If you have questions about your results, please contact your referring provider. Narrative 04/16/2024 1:34 PM CDT For Patients: As a result of the Century Cures Act, medical imaging exams and procedure reports are released immediately into your electronic medical record. You may view this report before your referring provider. If you have questions, please contact your health care provider. XR MAMMO LAYTON BILAT SCREEN [[id number]] CLINICAL HISTORY: This is an asymptomatic 58 y.o. patient. INDICATION FOR EXAM: Mammogram Screening. TECHNIQUE: CC & MLO views were obtained. This study was evaluated with the assistance of Computer-Aided Detection. Breast Tomosynthesis was used in interpretation. COMPARISON FILM: Yes 04/11/23 [facility] FINDINGS: The breasts are almost entirely fatty. There are no dominant masses, suspicious micro calcifications or areas of architectural distortion. us Adei Shaq DO MAMMO Final Result * COLONOSCOPY SCREENING (07/18/2023 12:00 AM STUD MASTER/MISTRESS) Meliza Ryan DO GI PROCEDURE ORD Final Result from Last 3 Months or Most Recently Relevant to Health Maintenance Insurance [facility] [employer]VA [employer]IVE CASUALTY INS [facility] Care Teams Gore Stitcher Relationship Specialty Start Date End Date Meliza Ryan DO [address] [place] [id number] PCP - General Family Practice 7/27/23
--- OUTSIDE RECORDS SUMMARY | 2024-09-21 13:38 | XMS_ITS | Encounter Summary ---
Author Organization [employer] Address [address] [place] [address] Care Team Providers Care Metal Fabricator Name Role Phone Tristin Beasley MD Primary Care Provider [phone] Encounter Details Date Type Department Care Team (Late st Contact Info) Description 09/11/2015 Orders Only [facility] [address] [place], [place] [address] Social History Tobacco Use Types Packs/Day Years Used Date Smoking Tobacco: Never Smokeless Tobacco: Never Comments:grew up as passive smoker. not currently. Alcohol Use Standard Drinks/Week Comments Yes 0 (1 standard drink = 0.6 oz pur e alcohol) Comments Unknown Sex and Gender Information Value Date Recorded Sex Assigned at Not on file Legal Sex Female 6:57 AM CDT Gender Identity Not on file Sexual Orientation Not on file documented as of this encounter Plan of Treatment Not on file documented as of this encounter Visit Diagnoses Not on filedocumented in this encounter Care Teams Metal Fabricator Relationship Specialty Start Date End Date Tristin Beasley MD PCP - General Family Medicine 06/25/13 11/17/15 documented as of this encounter
--- OUTSIDE RECORDS SUMMARY | 2024-09-21 13:38 | XMS_ITS | Clinical Summary ---
Author Organization [facility] and Affili ates - [facility] [place] [address] Care Team Providers Care Dispatcher Ship Pilot Name Role Phone Amadou Beasley MD Primary Care Provider [phone] Source Comments The [facility] EMR consists of medical records from all [facility] ([facility]), the [facility] ([facility]), [facility], as well as other affiliates or partners, to include: [facility] in [place], [place], [facility], [facility], [facility], [facility], [facility]), [facility], and [facility]. The EMR may not contain all information available for this patient pursuant to the Care Everywhere program, as well as varying phases of implementation.[facility] Allergies Active Allergy Reactions Criticality Noted Date Comments Codeine NAUSEA & VOMITING 02/17/2016 Diphenhydramine HALLUCINATIONS 02/17/2016 Latex UNKNOWN 02/17/2016 Meperidine HIVES/SWELLING 02/17/2016 Wound Dressings ACNE 03/10/2016 Medications * Medications may not be up to date as of this document. Always verifycurrent medications with the patient. Medication Sig Dispensed Refills Start Date End Date Status cyclobenzaprine (FLEXERIL) 10 MG tab Take 1 tab by mouth 3 times daily as needed. For muscle spasm 16 tab 0 02/17/2016 Active ibuprofen (MOTRIN) 600 MG tab Take 1 tab by mouth 3 times daily as needed for pain. 90 tab 1 03/10/2016 Active Immunizations Name Administration Dates Next Due Dt Injection 04/02/1996 Social History Tobacco Use Types Packs/Day Years Used Date Smoking Tobacco: Never Alcohol Use Standard Drinks/Week Comments Yes 0 (1 standard drink = 0.6 oz pur e alcohol) 1-2 Financial Resource Strain Answer Date R ecorded Overall Financial Strain 99 019 Skipped Doctor's Visit 3 9 Skipped Medication due to cost 3 0 02/03/2019 Utility Shut-offs 3 02/03/2019 Sex and Gender Information Value Date Recorded Sex Assigned at Not on file Gender Identity Not on file Sexual Orientation Not on file Last Filed Vital Signs Vital Sign Reading Time Taken Comments Blood Pressure 105/72 03/10/2016 11:30 AM CDT L arm, reg cuff Pulse 74 03/10/2016 11:30 AM CDT Temperature 36.6 C (97.9 F) 02/17/2016 8:50 AM CDT Respiratory Rate 14 03/10/2016 11:3 0 AM CDT Oxygen Saturation 98% 02/17/2016 10: 24 AM CDT Inhaled Oxygen Concentration - - Weight 98.4 kg (217 lb) 03/10/2016 11:3 0 AM CDT Height 165.1 cm (5' 5) 03/10/2016 11:3 0 AM CDT Body Mass Index 36.11 03/10/2016 11:30 AM CDT Plan of Treatment Not on file Care Teams Dispatcher Ship Pilot Relationship Specialty Start Date End Date Amadou Beasley MD PCP - General Family Medicine 04/21/12
--- OUTSIDE RECORDS SUMMARY | 2024-09-21 13:38 | XMS_ITS | Clinical Summary ---
Author Organization [employer] Address [address] [place] [address] Care Team Providers Care Crushing Mill Operator Name Role Phone Unavailable Primary Care Provider Unavailabl e Source Comments This disclosure is being made pursuant to the [employer] program and maynot contain all information available regarding this patient.[facility] Allergies Active Allergy Reactions Criticality Noted Date Comments Codeine Rash Low 09/11/2015 Rash, vomiting, swelling of face Hydrocodone-Acetaminophe n Rash Low 09/11/2015 vomiting Hydromorphone Rash Low 09/11/2015 Itching, vomiting Latex Other (See Comments) 09/11/2015 Trouble breathing Meperidine Rash Low 09/11/2015 Vomiting, swelling of face Morphine Rash Low 09/11/2015 Vomiting, swelling of her face Nickel Other (See Comments) 09/11/2015 Melissa from surgery causes severe skin reaction causing scarring Oxycodone-Acetaminophen Rash Low 09/11/2015 vomiting Medications albuterol (PROAIR HFA;PROVENTIL HFA;VENTOLIN HFA) 108 (90 BASE) MCG/ACT inhaler Inhale 1 puff into the lungs every 12 (twelve) hours as needed. Uses ventolin brand only 03/14/2014 Active diazepam (VALIUM) 5 MG tablet Take 5 mg by mouth every 6 (six) hours as needed. 06/22/2013 Active ibuprofen (ADVIL,MOTRIN) 600 MG tablet Take 1 tablet by mouth every 8 (eight) hours as needed. 06/28/2014 Active pirbuterol (MAXAIR) 200 MCG/INH inhaler Inhale 2 puffs into the lungs 3 (three) times daily as needed. 05/19/2012 Active Active Problems Problem Noted Date Diagnosed Date Abnormal cervical Pap smear with positive HPV DN A test 09/11/2015 Overview (09/11/2015): Overview: 06/12/2003 - HGSIL 06/26/2003 - ASCUS, positive High Risk HPV. No follow up from patient. Bicornuate uterus 09/11/2015 DJD (degenerative joint disease) 09/11/2015 Dysmenorrhea 09/11/2015 Hx gestational diabetes 09/11/2015 Presence of (intrauterine) contraceptive device 09/11/2015 Reactive airway disease 09/11/2015 Pelvic adhesions 11/06/2012 Pelvic pain in female 07/12/2012 Anemia 05/29/2012 Immunizations Immunization Administration Dates Next Due Influenza Split 10/28/2012(Deferred: Patient Ref used) Pneumococcal Polysaccharide- 23 (Pneumovax 23) PPSV23 11/06/2012(Deferred: Patient Refused) Tdap 02/10/2012 Family History Medical History Relation Name Comments Substance Abuse Father Alcohol Prostate cancer Maternal Grandfather Uterine cancer Maternal Grandmother Breast cancer Unknown maternal great aunts - all 7 with breast cancer Relation Name Status Comments Father Maternal Grandfather Maternal Grandmother Unknown Social History Tobacco Use Types Packs/Day Years [...] Sign Reading Time Taken Comments Blood Pressure 106/66 06/21/2013 1:12 PM CDT Pulse 68 06/21/2013 1:12 PM CDT Temperature 36.7 C (98.1 F) 06/21/2013 1:12 PM CDT Respiratory Rate 16 06/21/2013 1:12 PM CDT Oxygen Saturation 98% 12/13/2012 2:15 PM CDT Inhaled Oxygen Concentration - - Weight 96.6 kg (213 lb) 06/21/2013 1:12 PM CDT Height 165.1 cm (5' 5) 07/05/2012 9:07 AM CDT Body Mass Index 35.45 07/05/2012 9:07 AM CDT Plan of Treatment Health Maintenance Due Date Last Done Comments CT Colonography 1967 Fecal DNA Test 1967 Lab-Cholesterol Screening 1967 Lab-Hepatitis C Screening 1967 Sigmoidoscopy 1967 Annual Wellness Visit 12/19/1985 Hepatitis B Vaccine (1 of 3 - 19+ 3-dose series) 12/19/1986 Breast Cancer Screening-Mammogram 05/05/2013 012 FOBT/FIT 03/14/2014 03/14/2013 HPV Testing 03/30/2017 03/30/2012 Pneumococcal Vaccines 50+ (1 of 1 - PCV) 12/19/2017 Zoster (Shingles) Vaccine 50 + (1 of 2) 12/19/2017 Tetanus/Pertussis Vaccine Teen/Adult (2 - Td or Tdap) 02/09/2022 02/10/2012 Colonoscopy 06/22/2022 06/22/2012 Colorectal Cancer Screening 06/22/2022 COVID-19 Vaccine ( - 2023-2 5 season) 2024 Influenza Vaccine (#1) 2024 RSV Adult (1 - 1-dose 75+ series) 12/19/2042 Pap Smear Discontinued 03/30/2012 Cervical Cancer Screening Discontinued HIB Vaccine Aged Out No longer eligi ble based on patient's age to complete this topic HPV Vaccine (F:9-26YO,M: 9-22) Aged Out No longer eligible based on patient's age to complete this topic Hepatitis A Vaccine Aged Out No longe r eligible based on patient's age to complete this topic IPV Vaccine Aged Out No longer eligi ble based on patient's age to complete this topic Meningococcal Conjugate Vaccine Aged Out No longer eligible based on patient's age to complete this topic Pneumococcal Vaccines 0-49 yo Aged Out No longer eligible based on patient's age to complete this topic RSV < 20 Months Aged Out No longer el igible based on patient's age to complete this topic Procedures Procedure Name Priority Date/Time Associated Diagnosis Comments CHG URINALYSIS, AUTO, W/O SCOPE Routine 03/14/2013 Vaginal pain COLONOSCOPY SCAN/SNUFF BLENDER Routine 06/22/2012 12:00 AM CDT THIN PREP PAP SMEAR Routine 03/30/2012 3 :14 PM CDT Cervical cancer screening HPV HIGH RISK SCREEN Routine 03/30/2012 3:14 PM CDT Cervical cancer screening from Last 3 Months or Most Recently Relevant to Health Maintenance Results * CHG URINALYSIS, AUTO, W/O SCOPE (03/14/2013) PH, UA 6 03/14/2013 9:49 AM CDT [facility] Glucose, UA norm 03/14/2013 9:49 AM CDT [facility] Ketones, UA neg 03/14/2013 9:49 AM CDT [facility] Leukocytes neg 03/14/2013 9:49 AM CDT [facility] Nitrite, UA neg 03/14/2013 9:49 AM CDT [facility] Protein, Random UR neg 03/14/2013 9:49 AM CDT [facility] Occult Blood Diagnostic, Stool neg 03/14/2013 9:49 AM CDT [facility] Urine specimen (specimen) 03/14/2013 us Liv [facility]Y [facility] Final R esult Performing Organization Address City/[facility]/ZIP Co de Phone Number [facility] [address] [place] [address] * COLONOSCOPY SCANNED PROCEDURE (06/22/2012 12:00 AM CDT) 06/22/2012 us Elie Lyon MD PROCEDURE/MINOR SURGICAL PER FORMABLES Final Result [place], [place] * Thin Prep Pap Smear (03/30/2012 3:14 PM CDT) OSTOMY COLLECTION BAG / Unknown 03/30/2012 3:14 PM CDT 03/31/2012 9:10 AM CDT Narrative Transcriptions Provider, Data Conversion - 04/03/2012 12:30 PM CDT Procedures signed by [facility] Cytology at 04/03/12 1230 Author: [facility] Cytology Service: (none) Author Type:Other2 Filed: 04/03/12 2807 Note Time: 04/03/12 1230 Status: Signed Brick Paver: [facility] Cytology (Other2) Procedure Orders: 1. THIN PREP PAP SMEAR [[id number]] ordered by Meenu Carroll NPat 03/30/12 1513 Patient: JETHRO ARROYO [id number] Client Patient ID: CYTOLOGY REPORT SPECIMEN: [id number] SOURCE CERVICAL/ENDOCERVICAL THIN PREP PAP : Received: one vial intact with 20 cc fluid- Includes specimen and fixative. CLINICAL INFORMATION: LMP: 03/12/2012 Colposcopy: Yes IUD: Yes Previous abnormal: 06/26/2003 ADEQUACY: Satisfactory for evaluation. No endocervical cells/transformation zone component present. NARRATIVE DESCRIPTION: Negative for intraepithelial lesion or malignancy. 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 Specimen to be processed for high-risk HPV. Cervical cytology is a screening test with limited sensitivity. It is not a diagnostic procedure and should not be used as the sole means to detect cervical cancer, especially in patients with symptoms or an abnormal cervix. Regular screening is critical for cancer prevention. Cervical cytology tests are primarily effective for the diagnosis/prevention of squamous cell carcinoma, not adenocarcinoma or other malignancies. MIRANDA ARMSTRONG(ASCP) 04/03/2012 12:30 Report Electronically Signed (END OF REPORT) us Data Conversion Provider PATHOLOGY/CYTOLOGY SINDYE KLAUS Final Result [facility] * (ABNORMAL) HPV High Risk Screen (03/30/2012 3:14 PM CDT) HPV High Risk POSITIVE( A) NEGATIVE 04/05/2012 2:54 PM CDT [facility] Comment: One or more of the following High Risk HPV types 16, 18, 31, 33, 35, 39, 45, 51, 52, 56, 58, 59, 66, and/or 68 were detected by the Cervista HPV HR test. HPV Comment see below 04/05/2012 2:54 PM CDT [facility] Comment: Recommend follow-up based on clinical history and 2006 ASCCP consensus guidelines for management of cervical cytologic and histologic abnormalities. Guidelines can be found at http://www.asccp.org/consensus.shtml. HPV 16/18 genotyping is available for further testing of this positive high-risk HPV result. HPV 16/18 genotyping detects the two types of HPV associated with approximately 70% of cervical cancer. To order HPV 16/18 genotyping please contact [facility] at . FDA approved indications: - In women 30 years and older the test may be used adjunctively with the Cervista HPV HR test in combination with cervical cytology to assess the presence or absence of specific high-risk HPV types 16 and 18. - Can be used adjunctively with the Cervista HPV HR test in patients with ASU-US cervical cytology results, to assess the presence or absence of high-risk types 16 and 18. 03/30/2012 3:14 PM CDT 04/03/2012 4:13 PM CDT us Data Conversion Provider MICROBIOLOGY - GENERAL ORDERABLES Final Result [facility] [address] [address] from Last 3 Months or Most Recently Relevant to Health Maintenance
--- OUTSIDE RECORDS SUMMARY | 2024-09-21 13:38 | XMS_ITS | Referral Summary ---
Author Organization [facility] and [facility] at[facility] - [facility] [place] [address] Care Team Providers Care Fans Clerk Name Role Phone Amadou Beasley MD Primary Care Provider [phone] Source Comments The [facility] EMR consists of medical records from all [facility] and [facility] ([facility]), the [facility] ([facility]), [facility], as well as other affiliates or partners, to include: [facility] in [place], [place], [facility], [facility], [facility], [facility], [facility], [facility]), [facility], and [facility]. The EMR may not contain all information available for this patient pursuant to the Care Everywhere program, as well as varying phases of implementation.[facility] Allergies Active Allergy Reactions Criticality Noted [...] of Treatment Not on file Care Teams Fans Clerk Relationship Specialty Start Date End Date Amadou Beasley MD PCP - General Family Medicine 04/21/12
[2024-09-21 13:44] VITALS: BP 96/61; PULSE 112; RESP 18; TEMP 36.6; O2SAT 96; BMI 31.5
--- NOTE | 2024-09-21 14:01 | ED.GENADULT ---
HPI - General Adult General Chief complaint: Nausea/Vomiting Stated complaint: vomiting, no food since last tuesday Time Seen by Provider: 09/21/24 13:47 History of Present Illness HPI narrative: Patient is a 58-year-old woman who comes in today with several days of nausea vomiting. She has no localizable abdominal pain. She has did have body aches fatigue and malaise as well. She has had no travel or sick contacts. She has had no blood in her stool or urine. She has had no blood in her vomitus. No reflux symptoms. Patient has not been able to take her usual medications which are listed. She went urgent care yesterday and Zofran has not been effective 0 DT. Again no chest pain no shortness of breath no palpitations. Related Data Home Medications ?Medication ?Instructions ?Recorded ?Confirmed albuterol sulfate 90 mcg/actuation 1 inh inhalation PRN 04/20/23 09/20/24 aerosol inhaler (Ventolin HFA) ibuprofen 600 mg tablet 600 mg PO 3XD 09/20/24 09/20/24 tirzepatide (weight loss) 10 10 mg subcut 09/20/24 09/20/24 mg/0.5 mL subcutaneous pen injector (Zepbound) Previous Rx's ?Medication ?Instructions ?Recorded cyclobenzaprine 10 mg tablet 10 mg PO TID #15 tabs 04/20/23 ondansetron 8 mg disintegrating 8 mg PO Q8H PRN nausea and 09/20/24 tablet vomiting #20 tabs Allergies Allergy/AdvReac Type Severity Reaction Status Date / Time codeine Allergy Verified 09/20/24 13:59 hydromorphone (From Dilaudid) Allergy Verified 09/20/24 13:59 meloxicam Allergy Verified 09/20/24 13:59 meperidine (From Demerol) Allergy Verified 09/20/24 13:59 methylprednisolone Allergy Verified 09/20/24 13:59 morphine Allergy Verified 09/20/24 13:59 Latex, Natural Rubber AdvReac Intermediate Rash Verified 09/20/24 13:59 narcotic Allergy Intermediate Uncoded 09/20/24 13:59 Review of Systems Status of ROS: Reports: 10 or more systems reviewed and unremarkable except as noted in History and below PFSH PFSH Social History Smoking Status: Never smoker Non-prescribed substance use: denies use Exam Narrative: Exam Narrative: EXAM GENERAL: Patient appears mildly dehydrated. EYES: No scleral icterus. LYMPH: No supraclavicular or cervical lymphadenopathy. SKIN: Visible skin seen during exam normal or with benign process only. EXT: No dependent lower extremity pedal edema. HEART: Regular rate and rhythm with no murmurs, rubs, or gallops. LUNGS: Clear to auscultation bilaterally with no crackles or wheezes. ABD: Soft, non tender, non distended. PSYCH: Good eye contact, speech is not pressured. Const: Vital Signs, click to edit/add: Vital Signs - 24 hr 09/21/24 13:44 Temperature 98 F Pulse Rate [Pulse Oximeter] 112 H Respiratory Rate 18 Blood Pressure [Ri ght Upper Arm] 96/61 Pulse Oximetry 96 Oxygen Delivery Me thod Room Air Course Course ED Course: I did place an IV. I did collect CBC comprehensive metabolic panel lipase lactate. At this time we will treat her nausea with IV Zofran begin hydrating with IV normal saline and provide some pain relief for chronic back pain with IV Toradol. Vital Signs Vital signs: Initial Vital Signs Temperature 98 F 09/21/24 13:44 Temperature Source Temporal Artery Scan 09/21/24 13:44 Pulse Rate 112 H 09/21/24 13:44 Respiratory Rate 18 09/21/24 13:44 Blood Pressure 96/61 09/21/24 13:44 Blood Pressure Mean 72 09/21/24 13:44 Blood Pressure Position Sitting 09/21/24 13:44 Pulse Oximetry 96 09/21/24 13:44 Oxygen Delivery Method Room Air 09/21/24 13:44 Vital Signs Temperature 98 F 09/21/24 13:44 Pulse Rate 112 H 09/21/24 13:44 Respiratory Rate 18 09/21/24 13:44 Blood Pressure 96/61 09/21/24 13:44 Pulse Oximetry 96 09/21/24 13:44 Oxygen Delivery Method Room Air 09/21/24 13:44 Temperature 98 F 09/21/24 13:44 Pulse Rate 112 H 09/21/24 13:44 Respiratory Rate 18 09/21/24 13:44 Blood Pressure 96/61 09/21/24 13:44 Pulse Oximetry 96 09/21/24 13:44 Oxygen Delivery Method Room Air 09/21/24 13:44 Medications Administered Medications: Discontinued Medications Generic Name Dose Route Start Last Admin Trade Name Trina PRN Reason Stop Dose Admin Sodium Chloride 1,000 mls @ 1,000 mls/hr 09/21/24 14:01 09/21/24 14:19 0.9 % Sodium Chloride 1000 Ml IV 09/21/24 15:00 1,000 mls/hr .Q1H RICKY Administration Ketorolac Tromethamine 30 mg 09/21/24 14:00 09/21/24 14:19 Ketorolac 30 Mg/Ml Inj IVP 09/21/24 14:01 30 mg ONCE ONE Administration Ondansetron HCl 4 mg 09/21/24 14:00 09/21/24 14:19 Ondansetron 2 Mg/Ml Inj IVP 09/21/24 14:01 4 mg ONCE ONE Administration Medical Decision Making MDM Narrative Medical decision making narrative: Patient is a 58-year-old woman who presents with gastroenteritis. She had reassuring physical exam and vital signs as well as laboratory studies. I did treated with normal saline Zofran and Toradol. She is feeling much better. She had previously been prescribed Zofran and has some at home. This time will discharge her home to advance her diet activity as tolerated Zofran Tylenol Motrin as needed. Differential diagnosis includes but not limited to gastroenteritis acute urinary tract infection colitis diverticulitis. Lab Data Labs: Lab Results 09/21/24 Range/Units 14:25 WBC 8.93 (4.50-11.00) K/uL RBC 5.03 (4.00-5.20) m/uL Hgb 14.2 (12.0-16.0) gm/dL Hct 42.7 (33.0-51.0) % MCV 85 (80-100) fL MCH 28 (26-34) pg MCHC 33 (32-36) gm/dL RDW Coeff of Sean 14.1 (11.5-15.5) % Plt Count 180 (140-440) K/uL Neut % (Auto) 78.0 H (42.0-72.0) % Lymph % (Auto) 11.4 L (20-44) % Edmunds % (Auto) 10.2 (0.0-11.0) % Eos % (Auto) 0.1 (0.0-7.0) % Baso % (Auto) 0.2 (0.0-3.0) % Neut # (Auto) 7.00 (1.7-7.0) K/uL Lymph # (Auto) 1.00 (0.90-2.90) K/uL Edmunds # (Auto) 0.90 (0.00-0.90) K/UL Eos # (Auto) 0.01 (0.00-0.50) K/uL Baso # (Auto) 0.02 (0.00-0.30) K/uL Abs Immat Gran (auto) 0.01 (0.00-0.30) K/uL Imm/Tot Granulo (auto) 0.1 % Sodium 134 L (135-149) mmol/L Potassium 3.9 (3.6-5.1) mmol/L Chloride 101 (96-114) mmol/L Carbon Dioxide 19 L (20-32) mmol/L Anion Gap 14 (7-15) mEq/L BUN 14 (7-30) mg/dL Creatinine 0.6 (0.5-1.5) mg/dL Estimated Creat Clear 94.21 Estimated GFR 105 ml/min Glucose 110 (60-115) mg/dL Lactate 1.2 (0.5-1.9) mmol/L Calcium 8.9 (8.4-10.6) mg/dL Total Bilirubin 1.7 H (0.1-1.5) mg/dL AST 37 H (12-35) U/L ALT 51 H (4-35) U/L Alkaline Phosphatase 91 (40-150) U/L Total Protein 7.9 (6.0-8.3) g/dL Albumin 4.5 (3.3-5.0) g/dL Lipase 70 (23-300) U/L Discharge Plan Discharge Clinical Impression: Gastroenteritis Patient Disposition: Home, Self-Care Condition: Stable Instructions: Gastroenteritis (ED) Additional Instructions: Advanced diet activity as tolerated Tylenol Motrin Zofran Fluids Rest Follow-up as needed Activity Level: No Restrictions Discharge Diet: Regular Prescriptions: No Action Zepbound 10 mg/0.5 mL pen injector 10 mg subcut ibuprofen 600 mg tablet 600 mg PO 3XD ondansetron 8 mg tablet,disintegrating 8 mg PO Q8H PRN (Reason: nausea and vomiting) Qty: 20 0RF albuterol sulfate [Ventolin HFA] 90 mcg/actuation HFA aerosol inhaler 1 inh inhalation PRN cyclobenzaprine 10 mg tablet 10 mg PO TID Qty: 15 0RF Follow Up/Referrals: MELIZA FERGUSON DO [Primary Care Provider] - Stand Alone Forms: [employer] Info Instructions
--- OUTSIDE RECORDS SUMMARY | 2024-09-21 14:06 | XMS_ITS | Clinical Summary ---
Author Organization [employer] Address [address] [place] [address] Care Team Providers Care Bean Viner Name Role Phone Unavailable Primary Care Provider Unavailabl e Source Comments This disclosure is being made pursuant to the [employer] program and maynot contain all information available regarding this patient.[facility] Allergies Active Allergy Reactions Criticality Noted Date [...] W/O SCOPE Routine 03/14/2013 Vaginal pain COLONOSCOPY SCAN/FIRER TUNNEL KILN Routine 06/22/2012 12:00 AM CDT THIN PREP PAP SMEAR Routine 03/30/2012 3 :14 PM CDT Cervical cancer screening HPV HIGH RISK SCREEN Routine 03/30/2012 3:14 PM CDT Cervical cancer screening from Last 3 Months or Most Recently Relevant to Health Maintenance Results * CHG URINALYSIS, AUTO, W/O SCOPE (03/14/2013) PH, UA 6 03/14/2013 9:49 AM CDT [facility] Glucose, UA norm 03/14/2013 9:49 AM CDT [facility] Ketones, UA neg 03/14/2013 9:49 AM CDT [facility] Leukocytes neg 03/14/2013 9:49 AM CDT [facility] Nitrite, UA neg 03/14/2013 9:49 AM CDT [facility] Protein, Random UR neg 03/14/2013 9:49 AM CDT [facility] Occult Blood Diagnostic, Stool neg 03/14/2013 9:49 AM CDT [facility] Urine specimen (specimen) 03/14/2013 us Liv DOT[facility] Final R esult Performing Organization Address City/[facility]/ZIP Co de Phone Number [facility] [address] [place] [address] * COLONOSCOPY SCANNED PROCEDURE (06/22/2012 12:00 AM CDT) 06/22/2012 us Elie Lyon MD PROCEDURE/MINOR SURGICAL PER FORMABLES Final Result [place], [place] * Thin Prep Pap Smear (03/30/2012 3:14 PM CDT) OSTOMY COLLECTION BAG / Unknown 03/30/2012 3:14 PM CDT 03/31/2012 9:10 AM CDT Narrative Transcriptions Provider, Data Conversion - 04/03/2012 12:30 PM CDT Procedures [facility] at 04/03/12 1230 Author: [facility] Cytology Service: (none) Author Type:Other2 Filed: 04/03/12 0213 Note Time: 04/03/12 1230 Status: Signed Wafer Machine Operator: [facility] Cytology (Other2) Procedure Orders: 1. THIN PREP PAP SMEAR [[id number]] ordered by Meenu Carroll NPat 03/30/12 1513 Patient: JETHRO ARROYO [id number] Client Patient ID: CYTOLOGY REPORT SPECIMEN: [id number] SOURCE CERVICAL/ENDOCERVICAL THIN PREP PAP : Received: [...] Conversion Provider PATHOLOGY/CYTOLOGY SINDYE KLAUS Final Result [facility] * (ABNORMAL) HPV High Risk Screen (03/30/2012 3:14 PM CDT) HPV High Risk POSITIVE( A) NEGATIVE 04/05/2012 2:54 PM CDT [facility] Comment: One or more of the following High Risk HPV types 16, 18, 31, 33, 35, 39, 45, 51, 52, 56, 58, 59, 66, and/or 68 were detected by the Cervista HPV HR test. HPV Comment see below 04/05/2012 2:54 PM CDT [facility] Comment: Recommend follow-up based on [...] To order HPV 16/18 genotyping please contact [facility] at . FDA approved indications: - [...] Provider MICROBIOLOGY - GENERAL ORDERABLES Final Result [facility] [address] [address] from Last 3 Months or Most Recently Relevant to Health Maintenance
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
--- OUTSIDE RECORDS SUMMARY | 2024-09-21 14:06 | XMS_ITS | Referral Summary ---
Author Organization [facility] [place] [address] Care Team Providers Care Clam Bed Laborer Name Role Phone Amadou Beasley MD Primary Care Provider [phone] Source Comments The [facility] EMR consists of medical records from all [facility] and [facility] ([facility]), the [facility] ([facility]), [facility], as well as other affiliates or partners, to include: Access [facility] in [place], [place], [facility], [facility], [facility], [facility], [facility], [facility]), [facility], and [facility]. The EMR may not contain all information available for this patient pursuant to the Care Everywhere program, as well as varying phases of implementation.[facility] Allergies Active Allergy Reactions Criticality Noted [...] of Treatment Not on file Care Teams Clam Bed Laborer Relationship Specialty Start Date End Date Amadou Beasley MD PCP - General Family Medicine 04/21/12
--- OUTSIDE RECORDS SUMMARY | 2024-09-21 14:06 | XMS_ITS | Clinical Summary ---
Author Organization [facility] [place] [address] Care Team Providers Care Squeezer Operator Name Role Phone Amadou Beasley MD Primary Care Provider [phone] Source Comments The [facility] EMR consists of medical records from all [facility] and [facility] ([facility]), the [facility] ([facility]), [facility], as well as other affiliates or partners, to include: Access [facility] in [place], [place], [facility], [facility], [facility], [facility], [facility], [place] [facility] ([facility]), [place] [facility], and [facility]. The EMR may not contain all information available for this patient pursuant to the Care Everywhere program, as well as varying phases of implementation.[facility] Allergies Active Allergy Reactions Criticality Noted [...] of Treatment Not on file Care Teams Squeezer Operator Relationship Specialty Start Date End Date Amadou Beasley MD PCP - General Family Medicine 04/21/12
--- OUTSIDE RECORDS SUMMARY | 2024-09-21 14:06 | XMS_ITS | Encounter Summary ---
Author Organization [facility] Address [address] [place] [address] Care Team Providers Care Coal Handling Supervisor Name Role Phone Tristin Beasley MD Primary Care Provider [phone] Encounter Details Date Type Department Care Team (Late st Contact Info) Description 09/11/2015 [facility] [address] [place], [place] [address] Social History Tobacco Use Types Packs/Day Years [...] on filedocumented in this encounter Care Teams Coal Handling Supervisor Relationship Specialty Start Date End Date Tristin Beasley MD PCP - General Family Medicine 06/25/13 11/17/15 documented as of this encounter
[2024-09-21] MEDS: 0.9 % SODIUM CHLORIDE 1000 ml 1,000 ML IV ×2 (14:19→15:25)
[2024-09-21] MEDS: KETOROLAC 30 MG/ML inj IVP (14:19)
[2024-09-21] MEDS: ONDANSETRON 2 MG/ML inj 4 MG IVP (14:19)
[2024-09-21 14:29] LABS: Lactate* 1.2 mmol/L (0.5-1.9)
[2024-09-21 14:37] LABS: Basophils Absolute Auto 0.02 K/uL (0.00-0.30); Basophils Percent Auto 0.2 % (0.0-3.0); Eosinophils Absolute Auto 0.01 K/uL (0.00-0.50); Eosinophils Percent Auto 0.1 % (0.0-7.0); Hematocrit 42.7 % (33.0-51.0); Hemoglobin* 14.2 gm/dL (12.0-16.0); Immature Granulocytes Abs Auto 0.01 K/uL (0.00-0.30); Immature Granulocytes Pct Auto 0.1 %; Lymphocytes Percent Auto 11.4 % (20-44); Mean Corpuscular HGB Conc 33 gm/dL (32-36); Mean Corpuscular Hemoglobin 28 pg (26-34); Mean Corpuscular Volume 85 fL (80-100); Monocytes Percent Auto 10.2 % (0.0-11.0); Platelet Count* 180 K/uL (140-440); RDW Coefficient of Variation % 14.1 % (11.5-15.5); Red Blood Count 5.03 m/uL (4.00-5.20); White Blood Count* 8.93 K/uL (4.50-11.00)
[2024-09-21 14:38] LABS: Slide Review Reflex No
[2024-09-21 14:46] LABS: Albumin* 4.5 g/dL (3.3-5.0)
[2024-09-21 14:47] LABS: Chloride* 101 mmol/L (96-114); Potassium* 3.9 mmol/L (3.6-5.1); Sodium* 134 mmol/L (135-149)
[2024-09-21 14:49] LABS: Anion Gap 14 mEq/L (7-15); Aspartate Amino Transferase* 37 U/L (12-35); Bilirubin Total* 1.7 mg/dL (0.1-1.5); Carbon Dioxide* 19 mmol/L (20-32); Creatinine* 0.6 mg/dL (0.5-1.5); Est. Creatinine Clearance* 94.21; Estimated Glomerular Filt Rate 105 ml/min; Total Protein* 7.9 g/dL (6.0-8.3)
[2024-09-21 14:50] LABS: Alanine Aminotransferase* 51 U/L (4-35); Alkaline Phosphatase* 91 U/L (40-150); Blood Urea Nitrogen* 14 mg/dL (7-30); Calcium* 8.9 mg/dL (8.4-10.6); Glucose* 110 mg/dL (60-115); Lipase* 70 U/L (23-300)
== END 2024-09-21 15:59 | disposition home or self-care (01) ==
PROVIDERS: Emergency Provider Internal Medicine; PCP Student in an Organized Health Care Education/Training Program
DX: K52.9 Noninfective gastroenteritis and colitis, unspecified (principal)
CPT/HCPCS: 36415; 80053; 83605; 83690; 85025; 96361; 96374; 96375; 99283; 99284; J1885; J2405; J7030

== ENCOUNTER 2024-11-23 07:08 | Outpatient (CLI) | payer MEDICAID, SELFPAY | END 2024-11-23 07:09 | disposition home or self-care (01) | LOC: INJ CL 07:09 | PROVIDERS: PCP Student in an Organized Health Care Education/Training Program; Visit Provider Family Medicine | DX: M17.12 Unilateral primary osteoarthritis, left knee (principal); M25.562 Pain in left knee | CPT/HCPCS: 64454 ==

== ENCOUNTER 2024-11-30 12:09 | Outpatient (CLI) | payer MEDICAID, SELFPAY ==
--- NOTE | 2024-11-30 13:45 | P.ANES_ITS ---
Anesthesia Charges Start Date/Time Anesthesia Start Date: 11/30/24 Anesthesia Start Time: 13:05 Stop Date/Time Anesthesia Stop Date: 11/30/24 Anesthesia Stop Time: 13:39 Coding CPT Codes CPT Codes: ANESTH KNEE AREA SURGERY - 94991 ([id number]) P2 - PATIENT W/MILD SYST DISEASE, QZ - HEARING AID REPAIR TECHNICIAN SVC W/O SAMPLE COLOR MAKER BY
--- NOTE | 2024-11-30 13:45 | W.ANESCHARGE ---
Anesthesia Charges Start Date/Time Anesthesia Start Date: 11/30/24 Anesthesia Start Time: 13:05 Stop Date/Time Anesthesia Stop Date: 11/30/24 Anesthesia Stop Time: 13:39 Coding CPT Codes CPT Codes: ANESTH KNEE AREA SURGERY - 28053 ([id number]) P2 - PATIENT W/MILD SYST DISEASE, QZ - BLENDING PLANT OPERATOR SVC W/O AUTOMATIC EQUIPMENT TECHNICIAN BY
== END 2024-11-30 12:10 | disposition home or self-care (01) ==
LOC: INJ CL 12:09
PROVIDERS: PCP Student in an Organized Health Care Education/Training Program; Visit Provider Family Medicine
DX: M17.12 Unilateral primary osteoarthritis, left knee (principal); M25.562 Pain in left knee
CPT/HCPCS: 1320; 64624; J1885; J2405; J2704

== ENCOUNTER 2024-12-11 12:11 | Outpatient (CLI) | payer MEDICAID, SELFPAY | END 2024-12-11 12:12 | disposition home or self-care (01) | LOC: INJ CL 12:11 | PROVIDERS: PCP Student in an Organized Health Care Education/Training Program; Visit Provider Family Medicine | DX: M17.11 Unilateral primary osteoarthritis, right knee (principal); M25.561 Pain in right knee | CPT/HCPCS: 64454 ==

== ENCOUNTER 2025-01-01 12:09 | Outpatient (CLI) | payer MEDICAID, SELFPAY ==
--- NOTE | 2025-01-01 13:14 | P.ANES_ITS ---
Anesthesia Charges Start Date/Time Anesthesia Start Date: 01/01/25 Anesthesia Start Time: 13:07 Stop Date/Time Anesthesia Stop Date: 01/01/25 Anesthesia Stop Time: 13:43 Coding CPT Codes CPT Codes: ANESTH NERVE BLOCK/INJ - 63692 ([id number]) P2 - PATIENT W/MILD SYST DISEASE, QK - CHIEF PETROLEUM ENGINEER 2-4 CNCRNT ANES PROC, QX - BOARD CERTIFIED BEHAVIORAL ANALYST SVC W/ MD MED DIRECTION
--- NOTE | 2025-01-01 13:14 | W.ANESCHARGE ---
Anesthesia Charges Start Date/Time Anesthesia Start Date: 01/01/25 Anesthesia Start Time: 13:07 Stop Date/Time Anesthesia Stop Date: 01/01/25 Anesthesia Stop Time: 13:43 Coding CPT Codes CPT Codes: ANESTH NERVE BLOCK/INJ - 66480 ([id number]) P2 - PATIENT W/MILD SYST DISEASE, QK - ASSEMBLY INSTRUCTIONS WRITER 2-4 CNCRNT ANES PROC, QX - PAPER WOOD CUTTER SVC W/ MD MED DIRECTION
--- NOTE | 2025-01-01 13:45 | P.ANES_ITS ---
Anesthesia Charges Start Date/Time Anesthesia Start Date: 01/01/25 Anesthesia Start Time: 13:07 Stop Date/Time Anesthesia Stop Date: 01/01/25 Anesthesia Stop Time: 13:43 Coding CPT Codes CPT Codes: ANESTH NERVE BLOCK/INJ - 40598 ([id number]) P2 - PATIENT W/MILD SYST DISEASE, QX - REPAIRER RECREATIONAL VEHICLE SVC W/ MD MED DIRECTION, QK - BROACH TROUBLE SHOOTER 2-4 CNCRNT ANES PROC
--- NOTE | 2025-01-01 13:45 | W.ANESCHARGE ---
Anesthesia Charges Start Date/Time Anesthesia Start Date: 01/01/25 Anesthesia Start Time: 13:07 Stop Date/Time Anesthesia Stop Date: 01/01/25 Anesthesia Stop Time: 13:43 Coding CPT Codes CPT Codes: ANESTH NERVE BLOCK/INJ - 76150 ([id number]) P2 - PATIENT W/MILD SYST DISEASE, QX - OPERATING ENGINEER SVC W/ MD MED DIRECTION, QK - COLLAR TURNER 2-4 CNCRNT ANES PROC
== END 2025-01-01 12:10 | disposition home or self-care (01) ==
LOC: INJ CL 12:09
PROVIDERS: PCP Student in an Organized Health Care Education/Training Program; Visit Provider Family Medicine
DX: M17.11 Unilateral primary osteoarthritis, right knee (principal); M25.561 Pain in right knee
CPT/HCPCS: 01991; 64624; J1630; J2405; J2704

== ENCOUNTER 2025-08-13 13:05 | Outpatient (CLI) | payer MEDICAID, SELFPAY ==
--- NOTE | 2025-08-13 14:26 | P.ANES_ITS ---
Anesthesia Charges Start Date/Time Anesthesia Start Date: 08/13/25 Anesthesia Start Time: 14:06 Stop Date/Time Anesthesia Stop Date: 08/13/25 Anesthesia Stop Time: 14:38 Coding CPT Codes CPT Codes: ANESTH NERVE BLOCK/INJ - 87098 ([id number]) P2 - PATIENT W/MILD SYST DISEASE, QK - SPECIAL ASSETS OFFICER 2-4 CNCRNT ANES PROC, QX - CREPE LAMINATOR OPERATOR SVC W/ MD MED DIRECTION
--- NOTE | 2025-08-13 14:26 | W.ANESCHARGE ---
Anesthesia Charges Start Date/Time Anesthesia Start Date: 08/13/25 Anesthesia Start Time: 14:06 Stop Date/Time Anesthesia Stop Date: 08/13/25 Anesthesia Stop Time: 14:38 Coding CPT Codes CPT Codes: ANESTH NERVE BLOCK/INJ - 42914 ([id number]) P2 - PATIENT W/MILD SYST DISEASE, QK - LEAD GENERATOR 2-4 CNCRNT ANES PROC, QX - MEDICAL RESEARCH TECH SVC W/ MD MED DIRECTION
--- NOTE | 2025-08-13 14:42 | P.ANES_ITS ---
Anesthesia Charges Start Date/Time Anesthesia Start Date: 08/13/25 Anesthesia Start Time: 14:06 Stop Date/Time Anesthesia Stop Date: 08/13/25 Anesthesia Stop Time: 14:38 Coding CPT Codes CPT Codes: ANESTH NERVE BLOCK/INJ - 64986 ([id number]) P2 - PATIENT W/MILD SYST DISEASE, QK - SPANISH TUTOR 2-4 CNCRNT ANES PROC, QX - DENTAL SCHEDULING COORDINATOR SVC W/ MD MED DIRECTION
--- NOTE | 2025-08-13 14:42 | W.ANESCHARGE ---
Anesthesia Charges Start Date/Time Anesthesia Start Date: 08/13/25 Anesthesia Start Time: 14:06 Stop Date/Time Anesthesia Stop Date: 08/13/25 Anesthesia Stop Time: 14:38 Coding CPT Codes CPT Codes: ANESTH NERVE BLOCK/INJ - 23477 ([id number]) P2 - PATIENT W/MILD SYST DISEASE, QK - SALES OPERATIONS ASSOCIATE 2-4 CNCRNT ANES PROC, QX - MEDICAL RECRUITER SVC W/ MD MED DIRECTION
== END 2025-08-13 13:06 | disposition home or self-care (01) ==
LOC: INJ CL 13:06
PROVIDERS: PCP Student in an Organized Health Care Education/Training Program; Visit Provider Family Medicine
DX: M17.12 Unilateral primary osteoarthritis, left knee (principal); M25.562 Pain in left knee; G89.29 Other chronic pain
CPT/HCPCS: 01991; 64624; J2704

== ENCOUNTER 2025-08-27 10:21 | Outpatient (CLI) | payer MEDICAID, SELFPAY ==
--- NOTE | 2025-08-27 10:49 | P.ANES_ITS ---
Anesthesia Charges Start Date/Time Anesthesia Start Date: 08/27/25 Anesthesia Start Time: 11:27 Stop Date/Time Anesthesia Stop Date: 08/27/25 Anesthesia Stop Time: 11:55 Coding CPT Codes CPT Codes: ANESTH NERVE BLOCK/INJ - 75712 ([id number]) P2 - PATIENT W/MILD SYST DISEASE, QK - SUPERVISOR TUMBLERS 2-4 CNCRNT ANES PROC, QX - DOCUMENT PROCESSING SPECIALIST SVC W/ MD MED DIRECTION
--- NOTE | 2025-08-27 10:49 | W.ANESCHARGE ---
Anesthesia Charges Start Date/Time Anesthesia Start Date: 08/27/25 Anesthesia Start Time: 11:27 Stop Date/Time Anesthesia Stop Date: 08/27/25 Anesthesia Stop Time: 11:55 Coding CPT Codes CPT Codes: ANESTH NERVE BLOCK/INJ - 30857 ([id number]) P2 - PATIENT W/MILD SYST DISEASE, QK - AIRCRAFT ELECTRICIAN 2-4 CNCRNT ANES PROC, QX - TOOL DESIGNER SVC W/ MD MED DIRECTION
--- NOTE | 2025-08-27 12:00 | P.ANES_ITS ---
Anesthesia Charges Start Date/Time Anesthesia Start Date: 08/27/25 Anesthesia Start Time: 11:27 Stop Date/Time Anesthesia Stop Date: 08/27/25 Anesthesia Stop Time: 11:55 Coding CPT Codes CPT Codes: ANESTH NERVE BLOCK/INJ - 58108 ([id number]) P2 - PATIENT W/MILD SYST DISEASE, QX - LIP READING TEACHER SVC W/ MD MED DIRECTION, QK - DESKTOP SUPPORT ENGINEER 2-4 CNCRNT ANES PROC
--- NOTE | 2025-08-27 12:00 | W.ANESCHARGE ---
Anesthesia Charges Start Date/Time Anesthesia Start Date: 08/27/25 Anesthesia Start Time: 11:27 Stop Date/Time Anesthesia Stop Date: 08/27/25 Anesthesia Stop Time: 11:55 Coding CPT Codes CPT Codes: ANESTH NERVE BLOCK/INJ - 23649 ([id number]) P2 - PATIENT W/MILD SYST DISEASE, QX - ALUMINIZER SVC W/ MD MED DIRECTION, QK - OCEANOGRAPHY TEACHER 2-4 CNCRNT ANES PROC
== END 2025-08-27 10:22 | disposition home or self-care (01) ==
LOC: INJ CL 10:21
PROVIDERS: PCP Student in an Organized Health Care Education/Training Program; Visit Provider Family Medicine
DX: M17.11 Unilateral primary osteoarthritis, right knee (principal); M25.561 Pain in right knee; G89.29 Other chronic pain
CPT/HCPCS: 01991; 64624; J2704